=== PATIENT | female | born 1995 | race Caucasian/White ===

== ENCOUNTER 2018-01-26 13:18 | Inpatient (IN) | payer OTHER ==
[2018-01-26 15:08] LABS: ADD MAN DIFF? NO
[2018-01-26 15:11] LABS: BASOPHILS % 0.3 % (0.0-2.0); EOSINOPHILS # 0.1 10^3/ul (0.0-0.5); EOSINOPHILS % 0.5 % (0.0-7.0); HEMATOCRIT 40.5 % (37.0-47.0); HEMOGLOBIN 13.5 g/dl (12.0-16.0); LYMPHOCYTES # 2.3 10^3/ul (0.8-2.9); LYMPHOCYTES % 20.2 % (15.0-51.0); MEAN CORPUSCULAR HEMOGLOBIN 27.3 pg (29.0-33.0); MEAN CORPUSCULAR HGB CONC 33.3 g/dl (32.0-37.0); MEAN PLATELET VOLUME 11.8 fl (7.4-10.4); MONOCYTE # 0.7 10^3/ul (0.3-0.9); MONOCYTES % 6.5 % (0.0-11.0); NEUTROPHIL # 8.2 10^3/ul (1.6-7.5); NEUTROPHILS % 72.1 % (39.0-77.0); PLATELET COUNT 158 10^3/UL (140-415); RED BLOOD COUNT 4.94 10^6/ul (4.20-5.40); RED CELL DISTRIBUTION WIDTH 13.9 % (11.5-14.5)
[2018-01-26 15:11] LABS: WHITE BLOOD COUNT 11.4 10^3/ul (4.8-10.8)
[2018-01-26 15:30] LABS: ALANINE AMINOTRANSFERASE 26 IU/L (13-69); ALBUMIN 3.3 g/dl (3.3-4.9); ALKALINE PHOSPHATASE 133 IU/L (42-121); ANION GAP 14 (8-16); ASPARTATE AMINO TRANSFERASE 23 IU/L (15-46); BILIRUBIN,INDIRECT 0.3 mg/dl (0-1.1); BILIRUBIN,TOTAL 0.3 mg/dl (0.2-1.3); BLOOD UREA NITROGEN 10 mg/dl (7-20); CALCIUM 9.1 mg/dl (8.4-10.2); CARBON DIOXIDE 22 mmol/L (21-31); CHLORIDE 108 mmol/L (97-110); CREATININE 0.61 mg/dl (0.44-1.00); GLUCOSE 117 mg/dl (70-220); LACTATE DEHYDROGENASE 489 IU/L (313-618); PHOSPHORUS 4.1 mg/dl (2.5-4.9); SODIUM 140 mmol/L (135-144); TOTAL PROTEIN 6.6 g/dl (6.1-8.1)
[2018-01-26 15:34] LABS: ALANINE AMINOTRANSFERASE 25 IU/L (13-69); ALBUMIN 3.3 g/dl (3.3-4.9); ALBUMIN/GLOBULIN RATIO 1.03; ALKALINE PHOSPHATASE 137 IU/L (42-121); ANION GAP 13 (8-16); ASPARTATE AMINO TRANSFERASE 23 IU/L (15-46); BILIRUBIN,INDIRECT 0.3 mg/dl (0-1.1); BILIRUBIN,TOTAL 0.3 mg/dl (0.2-1.3); BLOOD UREA NITROGEN 10 mg/dl (7-20); CALCIUM 9.1 mg/dl (8.4-10.2); CARBON DIOXIDE 22 mmol/L (21-31); CHLORIDE 109 mmol/L (97-110); GLUCOSE 119 mg/dl (70-220); SODIUM 140 mmol/L (135-144); TOTAL PROTEIN 6.5 g/dl (6.1-8.1)
[2018-01-26 15:51] LABS: FIBRIN SPLIT PRODUCT <10 ug/ml (<10)
[2018-01-26] MEDS: BETAMET NA PHOS/AC(6 MG/ML) 5ML INJ IM (16:24)
[2018-01-27] MEDS: PRENATAL VITAMIN PO (08:34)
[2018-01-27] MEDS: FERROUS SULFATE (EC) 325 MG TAB PO (08:34)
[2018-01-27 09:38] LABS: ADD MAN DIFF? NO
[2018-01-27 09:42] LABS: BASOPHILS % 0.2 % (0.0-2.0); HEMATOCRIT 43.5 % (37.0-47.0); HEMOGLOBIN 14.4 g/dl (12.0-16.0); LYMPHOCYTES # 2.7 10^3/ul (0.8-2.9); LYMPHOCYTES % 15.1 % (15.0-51.0); MEAN CORPUSCULAR HEMOGLOBIN 27.4 pg (29.0-33.0); MEAN CORPUSCULAR HGB CONC 33.1 g/dl (32.0-37.0); MEAN CORPUSCULAR VOLUME 82.7 fl (82.0-101.0); MEAN PLATELET VOLUME 12.4 fl (7.4-10.4); MONOCYTE # 0.7 10^3/ul (0.3-0.9); MONOCYTES % 3.7 % (0.0-11.0); NEUTROPHIL # 14.2 10^3/ul (1.6-7.5); NEUTROPHILS % 80.3 % (39.0-77.0); PLATELET COUNT 179 10^3/UL (140-415); RED BLOOD COUNT 5.26 10^6/ul (4.20-5.40); RED CELL DISTRIBUTION WIDTH 14.3 % (11.5-14.5)
[2018-01-27 09:42] LABS: WHITE BLOOD COUNT 17.7 10^3/ul (4.8-10.8)
[2018-01-27 10:06] LABS: ALANINE AMINOTRANSFERASE 28 IU/L (13-69); ALBUMIN 3.7 g/dl (3.3-4.9); ALBUMIN/GLOBULIN RATIO 1.19; ALKALINE PHOSPHATASE 156 IU/L (42-121); ANION GAP 18 (8-16); ASPARTATE AMINO TRANSFERASE 27 IU/L (15-46); BILIRUBIN,INDIRECT 0.4 mg/dl (0-1.1); BILIRUBIN,TOTAL 0.4 mg/dl (0.2-1.3); BLOOD UREA NITROGEN 13 mg/dl (7-20); CALCIUM 9.1 mg/dl (8.4-10.2); CARBON DIOXIDE 19 mmol/L (21-31); CHLORIDE 105 mmol/L (97-110); CREATININE 0.57 mg/dl (0.44-1.00); GLUCOSE 108 mg/dl (70-220); SODIUM 138 mmol/L (135-144); TOTAL PROTEIN 6.8 g/dl (6.1-8.1); URIC ACID 6.4 mg/dl (3.1-7.9)
[2018-01-27 12:22] LABS: ADD UMIC NO; UR ASCORBIC ACID 40 mg/dL (NEGATIVE); UR BILIRUBIN (Dip) NEGATIVE (NEGATIVE); UR BLOOD (Dip) NEGATIVE (NEGATIVE); UR CLARITY SLIGHTLY CLOUDY (CLEAR); UR COLOR YELLOW (YELLOW); UR GLUCOSE (Dip) 3+ mg/dL (NEGATIVE); UR KETONES (Dip) 1+ mg/dL (NEGATIVE); UR LEUKOCYTE ESTERASE (Dip) NEGATIVE Leu/ul (NEGATIVE); UR NITRITE (Dip) NEGATIVE (NEGATIVE); UR RBC 3 /HPF (0-5); UR SPECIFIC GRAVITY (Dip) 1.018 (1.003-1.030); UR SQUAMOUS EPITHELIAL CELL FEW /HPF (FEW); UR TOTAL PROTEIN (Dip) NEGATIVE (NEGATIVE); UR UROBILINOGEN (Dip) NEGATIVE (NEGATIVE); UR WBC 3 /HPF (0-5)
[2018-01-27] MEDS: BETAMET NA PHOS/AC(6 MG/ML) 5ML INJ IM (15:40)
[2018-01-27 15:47] LABS: COLLECTION PERIOD 24 hrs
[2018-01-27 16:04] LABS: CREATININE,URINE RANDOM 56.61 mg/dl (20-320)
[2018-01-27 16:05] LABS: COLLECTION PERIOD 24 hrs; VOLUME 2600 ml/24hrs; VOLUME 2600 mls
[2018-01-27 16:06] LABS: CREATININE CLEARANCE 179.3 mls/min (84.0-162.0); SCRET 0.57 mg/dl (0.44-1.00)
[2018-01-28 08:27] LABS: ADD MAN DIFF? NO
[2018-01-28 08:33] LABS: BASOPHILS % 0.1 % (0.0-2.0); HEMATOCRIT 40.1 % (37.0-47.0); HEMOGLOBIN 13.4 g/dl (12.0-16.0); LYMPHOCYTES # 2.8 10^3/ul (0.8-2.9); LYMPHOCYTES % 16.2 % (15.0-51.0); MEAN CORPUSCULAR HEMOGLOBIN 27.7 pg (29.0-33.0); MEAN CORPUSCULAR HGB CONC 33.4 g/dl (32.0-37.0); MEAN CORPUSCULAR VOLUME 82.9 fl (82.0-101.0); MEAN PLATELET VOLUME 11.9 fl (7.4-10.4); MONOCYTE # 0.9 10^3/ul (0.3-0.9); MONOCYTES % 5.1 % (0.0-11.0); NEUTROPHIL # 13.2 10^3/ul (1.6-7.5); NEUTROPHILS % 77.7 % (39.0-77.0); PLATELET COUNT 184 10^3/UL (140-415); RED BLOOD COUNT 4.84 10^6/ul (4.20-5.40); RED CELL DISTRIBUTION WIDTH 14.3 % (11.5-14.5)
[2018-01-28 08:53] LABS: ALANINE AMINOTRANSFERASE 27 IU/L (13-69); ALBUMIN 3.4 g/dl (3.3-4.9); ALBUMIN/GLOBULIN RATIO 1.17; ALKALINE PHOSPHATASE 143 IU/L (42-121); ANION GAP 17 (8-16); ASPARTATE AMINO TRANSFERASE 24 IU/L (15-46); BILIRUBIN,INDIRECT 0.4 mg/dl (0-1.1); BILIRUBIN,TOTAL 0.4 mg/dl (0.2-1.3); BLOOD UREA NITROGEN 15 mg/dl (7-20); CALCIUM 8.6 mg/dl (8.4-10.2); CARBON DIOXIDE 21 mmol/L (21-31); CHLORIDE 106 mmol/L (97-110); CREATININE 0.61 mg/dl (0.44-1.00); GLUCOSE 103 mg/dl (70-220); SODIUM 140 mmol/L (135-144); TOTAL PROTEIN 6.3 g/dl (6.1-8.1)
[2018-01-28] MEDS: PRENATAL VITAMIN PO (09:11)
[2018-01-28] MEDS: FERROUS SULFATE (EC) 325 MG TAB PO (09:11)
[2018-01-29 09:09] LABS: ADD MAN DIFF? NO
[2018-01-29 09:20] LABS: BASOPHILS % 0.2 % (0.0-2.0); EOSINOPHILS % 0.1 % (0.0-7.0); HEMATOCRIT 37.2 % (37.0-47.0); HEMOGLOBIN 12.4 g/dl (12.0-16.0); LYMPHOCYTES # 3.1 10^3/ul (0.8-2.9); LYMPHOCYTES % 21.1 % (15.0-51.0); MEAN CORPUSCULAR HEMOGLOBIN 27.7 pg (29.0-33.0); MEAN CORPUSCULAR HGB CONC 33.3 g/dl (32.0-37.0); MEAN CORPUSCULAR VOLUME 83.2 fl (82.0-101.0); MEAN PLATELET VOLUME 12.1 fl (7.4-10.4); MONOCYTE # 0.8 10^3/ul (0.3-0.9); MONOCYTES % 5.8 % (0.0-11.0); NEUTROPHIL # 10.3 10^3/ul (1.6-7.5); NEUTROPHILS % 70.9 % (39.0-77.0); PLATELET COUNT 167 10^3/UL (140-415); RED BLOOD COUNT 4.47 10^6/ul (4.20-5.40); RED CELL DISTRIBUTION WIDTH 14.3 % (11.5-14.5)
[2018-01-29 09:20] LABS: WHITE BLOOD COUNT 14.5 10^3/ul (4.8-10.8)
[2018-01-29] MEDS: FERROUS SULFATE (EC) 325 MG TAB PO (09:23)
[2018-01-29] MEDS: PRENATAL VITAMIN PO (09:23)
[2018-01-29 09:49] LABS: ALANINE AMINOTRANSFERASE 26 IU/L (13-69); ALBUMIN 2.8 g/dl (3.3-4.9); ALBUMIN/GLOBULIN RATIO 0.93; ALKALINE PHOSPHATASE 128 IU/L (42-121); ANION GAP 12 (8-16); ASPARTATE AMINO TRANSFERASE 24 IU/L (15-46); BILIRUBIN,INDIRECT 0.3 mg/dl (0-1.1); BILIRUBIN,TOTAL 0.3 mg/dl (0.2-1.3); BLOOD UREA NITROGEN 16 mg/dl (7-20); CALCIUM 8.3 mg/dl (8.4-10.2); CARBON DIOXIDE 21 mmol/L (21-31); CHLORIDE 111 mmol/L (97-110); CREATININE 0.64 mg/dl (0.44-1.00); GLUCOSE 126 mg/dl (70-220); SODIUM 140 mmol/L (135-144); TOTAL PROTEIN 5.8 g/dl (6.1-8.1); URIC ACID 7.1 mg/dl (3.1-7.9)
[2018-01-30 07:48] LABS: ADD MAN DIFF? NO
[2018-01-30 07:56] LABS: BASOPHIL # 0.1 10^3/ul (0.0-0.1); BASOPHILS % 0.4 % (0.0-2.0); EOSINOPHILS # 0.1 10^3/ul (0.0-0.5); EOSINOPHILS % 0.5 % (0.0-7.0); HEMATOCRIT 39.6 % (37.0-47.0); HEMOGLOBIN 13.4 g/dl (12.0-16.0); LYMPHOCYTES % 22.8 % (15.0-51.0); MEAN CORPUSCULAR HEMOGLOBIN 27.7 pg (29.0-33.0); MEAN CORPUSCULAR HGB CONC 33.8 g/dl (32.0-37.0); MEAN PLATELET VOLUME 11.8 fl (7.4-10.4); MONOCYTE # 1.2 10^3/ul (0.3-0.9); MONOCYTES % 9.6 % (0.0-11.0); NEUTROPHIL # 8.5 10^3/ul (1.6-7.5); NEUTROPHILS % 65.2 % (39.0-77.0); PLATELET COUNT 161 10^3/UL (140-415); RED BLOOD COUNT 4.83 10^6/ul (4.20-5.40); RED CELL DISTRIBUTION WIDTH 14.2 % (11.5-14.5)
[2018-01-30 08:19] LABS: ALANINE AMINOTRANSFERASE 24 IU/L (13-69); ALBUMIN 3.1 g/dl (3.3-4.9); ALKALINE PHOSPHATASE 131 IU/L (42-121); ANION GAP 14 (8-16); ASPARTATE AMINO TRANSFERASE 29 IU/L (15-46); BILIRUBIN,INDIRECT 0.3 mg/dl (0-1.1); BILIRUBIN,TOTAL 0.3 mg/dl (0.2-1.3); BLOOD UREA NITROGEN 15 mg/dl (7-20); CALCIUM 8.7 mg/dl (8.4-10.2); CARBON DIOXIDE 22 mmol/L (21-31); CHLORIDE 107 mmol/L (97-110); CREATININE 0.63 mg/dl (0.44-1.00); GLUCOSE 76 mg/dl (70-220); POTASSIUM 4.1 mmol/L (3.5-5.1); SODIUM 139 mmol/L (135-144); TOTAL PROTEIN 5.9 g/dl (6.1-8.1); URIC ACID 7.2 mg/dl (3.1-7.9)
[2018-01-30] MEDS: FERROUS SULFATE (EC) 325 MG TAB PO (09:31)
[2018-01-30] MEDS: PRENATAL VITAMIN PO (09:31)
[2018-01-31 07:39] LABS: ADD MAN DIFF? NO
[2018-01-31 07:44] LABS: BASOPHIL # 0.1 10^3/ul (0.0-0.1); BASOPHILS % 0.4 % (0.0-2.0); EOSINOPHILS # 0.1 10^3/ul (0.0-0.5); EOSINOPHILS % 0.7 % (0.0-7.0); HEMATOCRIT 41.6 % (37.0-47.0); HEMOGLOBIN 13.8 g/dl (12.0-16.0); LYMPHOCYTES # 3.1 10^3/ul (0.8-2.9); MEAN CORPUSCULAR HEMOGLOBIN 27.4 pg (29.0-33.0); MEAN CORPUSCULAR HGB CONC 33.2 g/dl (32.0-37.0); MEAN CORPUSCULAR VOLUME 82.5 fl (82.0-101.0); MEAN PLATELET VOLUME 11.9 fl (7.4-10.4); MONOCYTES % 7.1 % (0.0-11.0); NEUTROPHILS % 67.5 % (39.0-77.0); PLATELET COUNT 176 10^3/UL (140-415); RED BLOOD COUNT 5.04 10^6/ul (4.20-5.40); RED CELL DISTRIBUTION WIDTH 14.1 % (11.5-14.5)
[2018-01-31 07:44] LABS: WHITE BLOOD COUNT 13.3 10^3/ul (4.8-10.8)
[2018-01-31 08:11] LABS: ALANINE AMINOTRANSFERASE 27 IU/L (13-69); ALBUMIN 3.2 g/dl (3.3-4.9); ALBUMIN/GLOBULIN RATIO 1.18; ALKALINE PHOSPHATASE 139 IU/L (42-121); ANION GAP 14 (8-16); ASPARTATE AMINO TRANSFERASE 32 IU/L (15-46); BILIRUBIN,INDIRECT 0.4 mg/dl (0-1.1); BILIRUBIN,TOTAL 0.4 mg/dl (0.2-1.3); BLOOD UREA NITROGEN 13 mg/dl (7-20); CALCIUM 8.7 mg/dl (8.4-10.2); CARBON DIOXIDE 22 mmol/L (21-31); CHLORIDE 107 mmol/L (97-110); CREATININE 0.65 mg/dl (0.44-1.00); GLUCOSE 72 mg/dl (70-220); POTASSIUM 4.1 mmol/L (3.5-5.1); SODIUM 139 mmol/L (135-144); TOTAL PROTEIN 5.9 g/dl (6.1-8.1); URIC ACID 7.4 mg/dl (3.1-7.9)
[2018-01-31] MEDS: FERROUS SULFATE (EC) 325 MG TAB PO (09:16)
[2018-01-31] MEDS: PRENATAL VITAMIN PO (09:16)
[2018-02-01 07:05] LABS: ADD MAN DIFF? NO
[2018-02-01 07:13] LABS: WHITE BLOOD COUNT 13.2 10^3/ul (4.8-10.8)
[2018-02-01 07:13] LABS: BASOPHILS % 0.3 % (0.0-2.0); EOSINOPHILS # 0.1 10^3/ul (0.0-0.5); EOSINOPHILS % 0.8 % (0.0-7.0); HEMATOCRIT 40.2 % (37.0-47.0); HEMOGLOBIN 13.5 g/dl (12.0-16.0); LYMPHOCYTES # 3.1 10^3/ul (0.8-2.9); LYMPHOCYTES % 23.2 % (15.0-51.0); MEAN CORPUSCULAR HEMOGLOBIN 27.4 pg (29.0-33.0); MEAN CORPUSCULAR HGB CONC 33.6 g/dl (32.0-37.0); MEAN CORPUSCULAR VOLUME 81.5 fl (82.0-101.0); MONOCYTE # 1.1 10^3/ul (0.3-0.9); MONOCYTES % 8.6 % (0.0-11.0); NEUTROPHIL # 8.6 10^3/ul (1.6-7.5); NEUTROPHILS % 65.7 % (39.0-77.0); PLATELET COUNT 166 10^3/UL (140-415); RED BLOOD COUNT 4.93 10^6/ul (4.20-5.40); RED CELL DISTRIBUTION WIDTH 14.1 % (11.5-14.5)
[2018-02-01 07:50] LABS: ALANINE AMINOTRANSFERASE 17 IU/L (13-69); ALBUMIN 2.9 g/dl (3.3-4.9); ALBUMIN/GLOBULIN RATIO 1.11; ALKALINE PHOSPHATASE 135 IU/L (42-121); ANION GAP 13 (8-16); ASPARTATE AMINO TRANSFERASE 18 IU/L (15-46); BILIRUBIN,INDIRECT 0.2 mg/dl (0-1.1); BILIRUBIN,TOTAL 0.2 mg/dl (0.2-1.3); BLOOD UREA NITROGEN 13 mg/dl (7-20); CALCIUM 8.8 mg/dl (8.4-10.2); CARBON DIOXIDE 22 mmol/L (21-31); CHLORIDE 107 mmol/L (97-110); CREATININE 0.59 mg/dl (0.44-1.00); GLUCOSE 92 mg/dl (70-220); POTASSIUM 4.1 mmol/L (3.5-5.1); SODIUM 138 mmol/L (135-144); TOTAL PROTEIN 5.5 g/dl (6.1-8.1); URIC ACID 6.7 mg/dl (3.1-7.9)
[2018-02-01] MEDS: PRENATAL VITAMIN PO (08:08)
[2018-02-01] MEDS: FERROUS SULFATE (EC) 325 MG TAB PO (08:09)
[2018-02-02] MEDS: FERROUS SULFATE (EC) 325 MG TAB PO (08:11)
[2018-02-02] MEDS: PRENATAL VITAMIN PO (08:11)
[2018-02-02] MEDS ORDERED: OXYTOCIN 30 UNITS/LR 500 ML IV ×2 (13:30)
[2018-02-02] MEDS ORDERED: METHYLERGONOVINE 0.2 MG INJ IM (13:30)
[2018-02-02] MEDS ORDERED: MISOPROSTOL 200 MCG TAB PR (13:30)
[2018-02-02] MEDS ORDERED: CARBOPROST 250 MCG INJ IM (13:30)
[2018-02-02] MEDS ORDERED: LIDOCAINE 1% (MPF) 30 ML INJ INJ (13:30)
[2018-02-02] MEDS ORDERED: BUTORPHANOL 1 MG INJ IV (13:30)
[2018-02-03] MEDS ORDERED: MISOPROSTOL 100 MCG TAB VAG (06:00)
[2018-02-03] MEDS: LACTATED RINGER'S 1,000 ML IV* ×3 (06:16→23:54)
[2018-02-03] MEDS: MISOPROSTOL 25 MCG CAPSULE PO ×5 (06:26→21:00)
[2018-02-03 07:21] LABS: ADD MAN DIFF? NO
[2018-02-03 07:24] LABS: BASOPHILS % 0.2 % (0.0-2.0); EOSINOPHILS # 0.1 10^3/ul (0.0-0.5); EOSINOPHILS % 0.8 % (0.0-7.0); HEMATOCRIT 41.6 % (37.0-47.0); LYMPHOCYTES # 3.1 10^3/ul (0.8-2.9); LYMPHOCYTES % 23.4 % (15.0-51.0); MEAN CORPUSCULAR HEMOGLOBIN 27.9 pg (29.0-33.0); MEAN CORPUSCULAR HGB CONC 33.7 g/dl (32.0-37.0); MEAN PLATELET VOLUME 12.3 fl (7.4-10.4); MONOCYTE # 1.1 10^3/ul (0.3-0.9); MONOCYTES % 8.1 % (0.0-11.0); NEUTROPHIL # 8.7 10^3/ul (1.6-7.5); NEUTROPHILS % 66.7 % (39.0-77.0); PLATELET COUNT 158 10^3/UL (140-415); RED BLOOD COUNT 5.01 10^6/ul (4.20-5.40); RED CELL DISTRIBUTION WIDTH 14.5 % (11.5-14.5)
[2018-02-03 07:51] LABS: ALANINE AMINOTRANSFERASE 27 IU/L (13-69); ALBUMIN 3.1 g/dl (3.3-4.9); ALBUMIN/GLOBULIN RATIO 0.96; ALKALINE PHOSPHATASE 152 IU/L (42-121); ANION GAP 10 (8-16); ASPARTATE AMINO TRANSFERASE 20 IU/L (15-46); BILIRUBIN,INDIRECT 0.4 mg/dl (0-1.1); BILIRUBIN,TOTAL 0.4 mg/dl (0.2-1.3); BLOOD UREA NITROGEN 13 mg/dl (7-20); CARBON DIOXIDE 21 mmol/L (21-31); CHLORIDE 112 mmol/L (97-110); CREATININE 0.63 mg/dl (0.44-1.00); GLUCOSE 89 mg/dl (70-220); SODIUM 139 mmol/L (135-144); TOTAL PROTEIN 6.3 g/dl (6.1-8.1); URIC ACID 6.9 mg/dl (3.1-7.9)
[2018-02-03 07:53] LABS: INR 0.91; PROTIME 12.3 Sec (11.9-14.9)
[2018-02-03 07:54] LABS: PARTIAL THROMBOPLASTIN TIME 26.1 Sec (25.0-35.0)
[2018-02-03 09:01] LABS: HEPATITIS B SURFACE ANTIGEN NEGATIVE (NEGATIVE)
[2018-02-03 09:12] LABS: ALANINE AMINOTRANSFERASE 25 IU/L (13-69); ALBUMIN 3.1 g/dl (3.3-4.9); ALKALINE PHOSPHATASE 152 IU/L (42-121); ASPARTATE AMINO TRANSFERASE 27 IU/L (15-46); BILIRUBIN,INDIRECT 0.4 mg/dl (0-1.1); BILIRUBIN,TOTAL 0.4 mg/dl (0.2-1.3); TOTAL PROTEIN 6.2 g/dl (6.1-8.1)
[2018-02-03] MEDS: PRENATAL VITAMIN PO (10:53)
[2018-02-03] MEDS: FERROUS SULFATE (EC) 325 MG TAB PO (10:53)
[2018-02-03] MEDS: OXYTOCIN 30 UNITS/LR 500 ML IV (19:12)
[2018-02-03] MEDS: BUTORPHANOL 2 MG INJ IV (22:56)
[2018-02-04] MEDS: MISOPROSTOL 25 MCG CAPSULE PO ×2 (01:00→05:00)
[2018-02-04] MEDS: LACTATED RINGER'S 1,000 ML IV* ×3 (03:39→17:30)
[2018-02-04] MEDS ORDERED: FENTAnyl 2MCG/ML-ROPIV 0.2% 100 ML (03:58)
[2018-02-04] MEDS ORDERED: DIPHENHYDRAMINE 50 MG INJ IV (04:00)
[2018-02-04] MEDS ORDERED: EPHEDrine SULFATE 50 MG/5 ML SYG IV (04:00)
[2018-02-04] MEDS ORDERED: ONDANSETRON 4 MG INJ IV (04:00)
[2018-02-04] MEDS ORDERED: NALOXONE (0.4 MG/ML) INJ IV (04:00)
[2018-02-04] MEDS ORDERED: MAGNESIUM SULFATE 4 GM/100 ML 100 ML (12:14)
[2018-02-04] MEDS: MAGNESIUM SULFATE 4 GM/100 ML 100 ML IV (12:22)
[2018-02-04] MEDS: MAGNESIUM SULFATE 20 GM/500 ML 500 ML IV ×2 (12:52→23:32)
[2018-02-04] MEDS: FENTAnyl 2MCG/ML-ROPIV 0.2% 100 ML BAG EPI (14:54)
[2018-02-04 17:32] LABS: RAPID PLASMA REAGIN NONREACTIVE (NR)
[2018-02-04 18:42] LABS: MAGNESIUM 5.5 mg/dl (1.7-2.5)
[2018-02-04] MEDS ORDERED: LABETALOL HCL 20MG INJ IV (21:00)
[2018-02-04] MEDS: OXYTOCIN 30 UNITS/LR 500 ML IV (21:42)
[2018-02-05 01:46] LABS: MAGNESIUM 6.6 mg/dl (1.7-2.5)
[2018-02-05] MEDS: FENTAnyl 2MCG/ML-ROPIV 0.2% 100 ML BAG EPI ×2 (03:11→11:43)
[2018-02-05 07:23] LABS: MAGNESIUM 7.4 mg/dl (1.7-2.5)
[2018-02-05] MEDS: FERROUS SULFATE (EC) 325 MG TAB PO (09:00)
[2018-02-05] MEDS: PRENATAL VITAMIN PO (09:00)
[2018-02-05] MEDS: DEXTROSE 5%-LR 1,000 ML IV ×2 (09:25→19:00)
[2018-02-05] MEDS: LACTATED RINGER'S 1,000 ML IV* ×3 (09:25→22:00)
[2018-02-05] MEDS ORDERED: AMPICILLIN 2 GM/NS (PMX) 100 ML (09:36)
[2018-02-05] MEDS: AMPICILLIN 2 GM/NS (PMX) 100 ML IVPB ×2 (09:41→18:00)
[2018-02-05] MEDS ORDERED: AMPICILLIN 2 GM/NS (PMX) 100 ML IVPB (12:00)
[2018-02-05] MEDS: OXYTOCIN 30 UNITS/LR 500 ML IV ×2 (13:19→19:56)
[2018-02-05] MEDS ORDERED: LACTATED RINGER'S 1,000 ML IV* (13:43)
[2018-02-05] MEDS ORDERED: NA PHOSPHATE/BIPHOS 133 ML ENEMA PR (14:00)
[2018-02-05] MEDS ORDERED: LANOLIN 7 GM TUBE TOP (14:00)
[2018-02-05] MEDS ORDERED: WITCH HAZEL/GLYCERIN PAD PR (14:00)
[2018-02-05] MEDS ORDERED: OXYTOCIN 30 UNITS/LR 500 ML IV (14:00)
[2018-02-05] MEDS ORDERED: BENZOCAINE 20% 56 ML SPRAY TOP (14:00)
[2018-02-05] MEDS ORDERED: DIPHENHYDRAMINE 50 MG INJ IV (14:00)
[2018-02-05] MEDS ORDERED: CARBOPROST 250 MCG INJ IM (14:00)
[2018-02-05] MEDS ORDERED: DIBUCAINE 1% 30 GM OINT PR (14:00)
[2018-02-05] MEDS ORDERED: DIPHENHYDRAMINE 25 MG CAP PO (14:00)
[2018-02-05] MEDS ORDERED: MAGNESIUM HYDROXIDE 30ML CUP PO (14:00)
[2018-02-05] MEDS ORDERED: MISOPROSTOL 200 MCG TAB PR (14:00)
[2018-02-05] MEDS ORDERED: ONDANSETRON 4 MG TAB PO (14:00)
[2018-02-05] MEDS ORDERED: ONDANSETRON 4 MG INJ IV (14:00)
[2018-02-05] MEDS ORDERED: HYDROCODONE/APAP (5/325) TAB PO (14:00)
[2018-02-05] MEDS: MAGNESIUM SULFATE 20 GM/500 ML 500 ML IV ×2 (14:19→19:00)
[2018-02-05] MEDS ORDERED: LABETALOL 200 MG TAB PO (14:30)
[2018-02-05] MEDS: NIFEdipine (XL) 60 MG TAB PO ×2 (14:33→20:45)
[2018-02-05] MEDS: LABETALOL 200 MG TAB PO (15:28)
[2018-02-05] MEDS ORDERED: IBUPROFEN 600 MG TAB PO (18:00)
[2018-02-05 18:42] LABS: MAGNESIUM 6.4 mg/dl (1.7-2.5)
[2018-02-05] MEDS: ACETAMINOPHEN 500 MG TAB PO (19:54)
[2018-02-05] MEDS ORDERED: SENNA/DOCUSATE NA (8.6MG/50MG) TAB PO (21:00)
[2018-02-06] MEDS: AMPICILLIN 2 GM/NS (PMX) 100 ML IVPB ×2 (01:01→05:32)
[2018-02-06] MEDS: OXYTOCIN 30 UNITS/LR 500 ML IV (01:05)
[2018-02-06 01:10] LABS: MAGNESIUM 6.2 mg/dl (1.7-2.5)
[2018-02-06] MEDS: LACTATED RINGER'S 1,000 ML IV* (06:18)
[2018-02-06] MEDS: HYDROCODONE/APAP (5/325) TAB PO (06:51)
[2018-02-06] MEDS: FERROUS SULFATE (EC) 325 MG TAB PO (09:26)
[2018-02-06] MEDS: SENNA/DOCUSATE NA (8.6MG/50MG) TAB PO (09:26)
[2018-02-06] MEDS: PRENATAL VITAMIN PO (09:26)
[2018-02-06 10:12] LABS: CBV Base Excess -1.7 mmol/L; CBV COHb 0.8 %; CBV Oxygen Sat 72.9 mmHG; Cord Blood Venous pO2 32.6 mmHG (15.0-45.0); Fraction OxyHgb Cord Venous 71.7 %; MODE ROOM AIR; MetHgb Cord Venous 0.8 %; Sample Type Blood venous; Site CORD
[2018-02-06] MEDS: NIFEdipine (XL) 60 MG TAB PO (10:43)
[2018-02-06 18:53] LABS: ADD MAN DIFF? NO
[2018-02-06 18:55] LABS: MONOCYTES % 6.7 % (0.0-11.0)
[2018-02-06 19:00] LABS: WHITE BLOOD COUNT 18.9 10^3/ul (4.8-10.8)
[2018-02-06 19:00] LABS: BASOPHIL # 0.1 10^3/ul (0.0-0.1); BASOPHILS % 0.4 % (0.0-2.0); EOSINOPHILS # 0.1 10^3/ul (0.0-0.5); EOSINOPHILS % 0.5 % (0.0-7.0); HEMATOCRIT 42.9 % (37.0-47.0); HEMOGLOBIN 14.5 g/dl (12.0-16.0); LYMPHOCYTES # 3.6 10^3/ul (0.8-2.9); LYMPHOCYTES % 18.9 % (15.0-51.0); MEAN CORPUSCULAR HGB CONC 33.8 g/dl (32.0-37.0); MEAN CORPUSCULAR VOLUME 82.8 fl (82.0-101.0); MEAN PLATELET VOLUME 11.4 fl (7.4-10.4); MONOCYTE # 1.3 10^3/ul (0.3-0.9); NEUTROPHIL # 13.8 10^3/ul (1.6-7.5); NEUTROPHILS % 72.9 % (39.0-77.0); RED BLOOD COUNT 5.18 10^6/ul (4.20-5.40); RED CELL DISTRIBUTION WIDTH 14.8 % (11.5-14.5)
[2018-02-06 19:24] LABS: PLATELET COUNT 135 10^3/UL (140-415)
[2018-02-06 19:25] LABS: POSITIVE DIFF @See below
[2018-02-07] MEDS: FERROUS SULFATE (EC) 325 MG TAB PO ×2 (08:41→09:00)
[2018-02-07] MEDS: NIFEdipine (XL) 60 MG TAB PO (08:42)
[2018-02-07] MEDS: PRENATAL VITAMIN PO (08:43)
[2018-02-07] MEDS: DIPHTH/TET/ACEL PERTUSS (ADULT) 0.5 ML VIAL IM* (08:44)
[2018-02-07] MEDS: VARICELLA VACCINE LIVE/PF 1,350 UNIT/0.5 ML ML SC* (08:45)
[2018-02-07] MEDS: MEASLES,MUMPS,RUBELLA VACCINE INJ SC* (08:45)
== END 2018-02-07 16:00 | disposition home or self-care (01) | DRG 775 ==
LOC: L-D 13:18 → PP1 02-05 20:27
PROC: 10E0XZZ Delivery of Products of Conception, External Approach (ICD-10-PCS; principal; 2018-02-05)
PROC: 3E033VJ Introduction of Other Hormone into Peripheral Vein, Percutaneous Approach (ICD-10-PCS; 2018-02-05)
DX: O14.94 Unspecified pre-eclampsia, complicating childbirth (principal); O69.81X0 Labor and delivery complicated by cord around neck, without compression, not applicable or unspecified; Z37.0 Single live birth; Z3A.36 36 weeks gestation of pregnancy
CPT/HCPCS: 36415; 76815; 76818; 80053; 80069; 80076; 81001; 81003; 82575; 82803; 83615; 83735; 84156; 84560; 85025; 85362; 85384; 85610; 85730; 86592; 86850; 86900; 86901; 87340; 99464